=== PATIENT | female | born 1955 | race African-American/Black ===

== ENCOUNTER 2018-06-21 07:55 | Emergency (ER) | payer OTHER ==
[~2018-06-21] VITALS: Ht 172.7 cm; Wt 82.0 kg
[2018-06-21] MEDS ORDERED: KETOROLAC 30MG/ML VIAL IV STA (10:17)
[2018-06-21] MEDS ORDERED: MAGNESIUM/ALUMINUM HYDROXIDE/SIMETHICONE 30ML UDC PO ONE (10:30)
[2018-06-21 10:46] LABS: BASOPHILS % 0.6 % (0.0-2.0); EOSINOPHILS % 2.4 % (0.0-5.0); LYMPHOCYTES % 32.3 % (20.0-50.0); MEAN CORPUSCULAR HEMOGLOBIN 31.8 pg (28.0-32.0); MEAN CORPUSCULAR VOLUME 95.7 fL (81.0-99.0); MEAN PLATELET VOLUME 8.4 fl (7.4-10.4); MONOCYTES % 8.5 % (2.0-8.0); NEUTROPHILS % 56.2 % (40.0-76.0); PLATELET 197 x1000/uL (130-400); RED BLOOD CELL COUNT 4.39 mill/uL (4.2-5.4); RED CELL DISTRIBUTION WIDTH 13.8 % (11.6-14.6)
[2018-06-21 10:53] LABS: CHLORIDE 110 mEq/L (98-107)
[2018-06-21 12:20] VITALS: BP 136/61
== END 2018-06-21 12:22 | disposition home or self-care (01) ==
LOC: ER 07:55 → CANBEDREQ 12:44
DX: R07.9 Chest pain, unspecified (principal)
CPT/HCPCS: 36415; 71045; 80053; 83690; 84484; 85025; 93005; 96374; 99284; J1885

== ENCOUNTER 2019-05-03 17:43 | Emergency (ER) | payer OTHER ==
[~2019-05-03] VITALS: Ht 165.1 cm; Wt 91.0 kg
[2019-05-03 18:30] LABS: BASOPHILS % 0.5 % (0.0-2.0); EOSINOPHILS % 1.8 % (0.0-5.0); HEMATOCRIT. 43.6 % (36.0-48.0); HEMOGLOBIN. 14.8 g/dL (12.0-16.0); LYMPHOCYTES % 31.8 % (20.0-50.0); MEAN CORPUSCULAR HEMOGLOBIN 32.5 pg (28.0-32.0); MEAN PLATELET VOLUME 8.8 fl (7.4-10.4); NEUTROPHILS % 56.9 % (40.0-76.0); PLATELET 212 x1000/uL (130-400); RED BLOOD CELL COUNT 4.55 mill/uL (4.2-5.4); RED CELL DISTRIBUTION WIDTH 13.1 % (11.6-14.6)
[2019-05-03 18:33] LABS: CHLORIDE 105 mEq/L (98-107)
[2019-05-03 18:35] LABS: INR 1.2; PARTIAL THROMBOPLASTIN TIME 30.4 sec (23.4-31.0); PROTHROMBIN TIME 12.4 sec (9.6-11.0)
[2019-05-03 18:37] LABS: ETHANOL BLOOD < 10 mg/dL
[2019-05-03] MEDS ORDERED: ONDANSETRON HCL 4MG/2ML INJ IV ONE (18:45)
[2019-05-03] MEDS ORDERED: MORPHINE SULFATE 4 MG/ML CPJ (NOT FOR IM USE) IV ONE (18:45)
[2019-05-03] MEDS ORDERED: SODIUM CHLORIDE 0.9% 1,000 ML IV ONE (18:55)
[2019-05-03] MEDS ORDERED: KETOROLAC 30MG/ML VIAL IV ONE (19:15)
[2019-05-03 22:59] VITALS: BP 132/75
== END 2019-05-03 23:01 | disposition home or self-care (01) ==
LOC: ER 17:43
DX: R51 Headache (principal)
CPT/HCPCS: 36415; 70450; 71045; 80053; 80320; 83690; 83880; 84484; 85025; 85610; 85730; 93005; 96374; 96375; 99284; J1885; J2270; J2405; J7030; G0480

== ENCOUNTER 2019-05-05 12:05 | Emergency (ER) | payer OTHER ==
[~2019-05-05] VITALS: Ht 160 cm; Wt 77.0 kg
[2019-05-05] MEDS ORDERED: ACETAMINOPHEN 325MG TABLET PO ONE (15:00)
[2019-05-05] MEDS ORDERED: DIAZEPAM 5 MG TABLET PO ONE (15:00)
[2019-05-05] MEDS ORDERED: KETOROLAC 60MG/2ML VIAL IM ONE (15:00)
[2019-05-05 17:00] VITALS: BP 147/72
== END 2019-05-05 17:24 | disposition home or self-care (01) ==
LOC: ER 12:12
DX: M54.2 Cervicalgia (principal); E78.00 Pure hypercholesterolemia, unspecified; I10 Essential (primary) hypertension
CPT/HCPCS: 72040; 96372; 99283; J1885

== ENCOUNTER 2022-04-06 09:09 | Emergency (ER) | payer OTHER ==
[~2022-04-06] VITALS: Ht 172.7 cm; Wt 113.0 kg
[2022-04-06] MEDS ORDERED: KETOROLAC 60MG/2ML VIAL IM ONE (10:00)
[2022-04-06 10:08] LABS: CLARITY URINE CLEAR (CLEAR); COLOR URINE YELLOW (YELLOW); KETONES URINE NEGATIVE (NEGATIVE); LEUKOCYTE ESTERASE URINE NEGATIVE (NEGATIVE); NITRITE URINE NEGATIVE (NEGATIVE); OCCULT BLOOD URINE NEGATIVE (NEGATIVE); PH URINE 6.5 (4.5-8.0); PROTEIN URINE NEGATIVE (NEGATIVE); SPECIFIC GRAVITY URINE 1.009 (1.005-1.030); UROBILINOGEN URINE 0.2 E.U./dL (0.2-1.0)
[2022-04-06] MEDS ORDERED: IBUP-2029 MT (11:25)
[2022-04-06] MEDS ORDERED: CYCL10TA21 MT (11:25)
[2022-04-06 12:03] VITALS: BP 132/97
== END 2022-04-06 12:04 | disposition home or self-care (01) ==
LOC: ER 09:09
DX: M54.50 Low back pain, unspecified (principal); I10 Essential (primary) hypertension; E78.00 Pure hypercholesterolemia, unspecified; E11.9 Type 2 diabetes mellitus without complications; Z98.890 Other specified postprocedural states
CPT/HCPCS: 81003; 96372; 99283; J1885

== ENCOUNTER 2023-11-16 07:40 | Emergency (ER) | payer OTHER ==
[~2023-11-16] VITALS: Ht 170.2 cm; Wt 82.0 kg
[~2023-11-16 07:40] MED LIST: CYCL10TA21 MT; IBUP-2029 MT
[2023-11-16 07:45] VITALS: O2SAT 99
[2023-11-16] MEDS: LIDOCAINE 5% PATCH TOP SCH (09:17)
[2023-11-16] MEDS ORDERED: KETOROLAC 60MG/2ML VIAL IM ONE (09:45)
[2023-11-16] MEDS: KETOROLAC 15MG/ML VIAL IM NR (10:07)
[2023-11-16 12:41] VITALS: BP 153/80; PULSE 62; RESP 19; TEMP 98
== END 2023-11-16 12:43 | disposition home or self-care (01) ==
LOC: ER 08:24
DX: M54.32 Sciatica, left side (principal); I10 Essential (primary) hypertension; E78.00 Pure hypercholesterolemia, unspecified; E11.9 Type 2 diabetes mellitus without complications; Z98.890 Other specified postprocedural states
CPT/HCPCS: 99283; 96372; J1885